=== PATIENT | male | born 1975 ===

== ENCOUNTER 2021-12-27 14:49 | Emergency (ER) | payer SELFPAY ==
[2021-12-27 15:02] VITALS: BP 140/50; PULSE 60; RESP 17; TEMP 36.8; O2SAT 98
--- NOTE | 2021-12-27 15:15 | DI.CT_ITS ---
Exam(s) CT LUMBAR SPINE RECONS CT ABDOMEN PELVIS WO EXAM: CT ABDOMEN PELVIS WO and CT lumbar spine recons CLINICAL HISTORY: fall 2 days ago,rlq and right hip pain. TECHNIQUE: Imaging Protocol: Axial computed tomography images with coronal and sagittal reformatted images were created and reviewed. COMPARISON: No exams were available for comparison FINDINGS: ABDOMEN: Lung Bases: Normal where visualized. Liver: Normal density. No measurable mass. Gallbladder and biliary tract: No radiodense calculus or biliary ductal dilation. Pancreas: Normal density, no abnormal calcifications or inflammatory process. Spleen: Normal. Kidneys: Normal size, contour and axis.No radiodense stones or obstructive uropathy. No masses seen. Adrenal glands: No mass is seen. Lymph nodes: Within normal limits. Abdominal Aorta: Abdominal portion non-dilated. Mild atherosclerosis. PELVIS: Bladder:Symmetric distention, no gross wall thickening. Bowel: No obstruction or bowel wall thickening. Appendix is unremarkable. Peritoneal cavity: No ascites, collection or mesenteric inflammatory response. No free air. Reproductive organs: Unremarkable as visualized. Bones: Within normal limits. No acute fracture or subluxation. Soft Tissues: There is edema seen in the soft tissues along the right lower abdominal wall and the ri ght flank. These may reflect contusions. Some of the fluid shows slightly higher density and likely reflects a hematoma. The right hip is intact. There are bilateral fat containing inguinal hernias. Lumbar spine recons: No acute fractures or subluxations are present. IMPRESSION: 1. No acute intra-abdominal or pelvic organ injury on this noncontrast examination. 2. Complex fluid collection over the right flank and right lateral abdominal wall suggestive of a hem atoma. 3. No acute fracture. 4. No acute fracture or subluxation in the lumbar spine. 5. Results of this exam have been verbally communicated with provider. RADIATION DOSE DELIVERED: 865.82 mGy.cm Total DLP DATA REPOSITORY: All CT scans at this facility are submitted to the National Radiology Data Registry (NRDR) Dose Index Registry (DIR) with the [employer] ([employer]). RADIATION OPTIMIZATION: All CT scans at this facility use at least one of these dose optimization te chniques: automated exposure control; mA and/or kV adjustment per patient size (includes targeted exa ms where dose is matched to clinical indication); or iterative reconstruction.
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
[2021-12-27] MEDS: Acetaminophen 500 MG TAB 1000 MG PO (15:36)
== END 2021-12-27 16:28 | disposition home or self-care (01) ==
PROVIDERS: Emergency Provider Emergency Medicine
DX: S30.0XXA Contusion of lower back and pelvis, initial encounter (principal); G89.11 Acute pain due to trauma; M25.551 Pain in right hip; V18.4XXA Pedal cycle driver injured in noncollision transport accident in traffic accident, initial encounter
CPT/HCPCS: 99284; 74176; 99282